=== PATIENT | male | born 1965 | race Two or more races ===

== ENCOUNTER 2018-10-24 12:51 | Inpatient (IN) | payer OTHER ==
[~2018-10-24] VITALS: Ht 162.6 cm; Wt 90.7 kg
[2018-11-01] MEDS ORDERED: OMEPRAZOLE20 MG PO (16:02)
[2018-11-01] MEDS ORDERED: INTEGRA F CAPS1 EACH PO (16:02)
[2018-11-01] MEDS ORDERED: INTESTINEX680 M1 PO (16:02)
[2018-11-01] MEDS ORDERED: PERCOCET 5-3251 EACH PO (16:02)
== END 2018-11-01 16:39 | disposition home or self-care (01) | DRG 331 ==
LOC: O/R 10-29 05:49 → SURG 10-29 05:49 → SURH 10-29 07:00 → SURG 10-29 14:04
PROVIDERS: ADMIT Surgery
PROC: 07TC4ZZ Resection of Pelvis Lymphatic, Percutaneous Endoscopic Approach (ICD-10-PCS; 2018-10-29)
PROC: 0DTK4ZZ Resection of Ascending Colon, Percutaneous Endoscopic Approach (ICD-10-PCS; principal; 2018-10-29 07:00)
DX: D12.2 Benign neoplasm of ascending colon (principal); R59.0 Localized enlarged lymph nodes

== ENCOUNTER 2018-10-28 07:08 | Day surgery (SDC) | payer OTHER | END 2018-10-28 11:40 | disposition home or self-care (01) | LOC: AMB-ENDOS 07:08 | DX: K57.30 Diverticulosis of large intestine without perforation or abscess without bleeding (principal) ==

== ENCOUNTER 2019-11-17 06:20 | Day surgery (SDC) | payer OTHER ==
[~2019-11-17 06:20] MED LIST: INTEGRA F CAPS1 EACH PO; INTESTINEX680 M1 PO; OMEPRAZOLE20 MG PO; PERCOCET 5-3251 EACH PO
== END 2019-11-17 13:40 | disposition home or self-care (01) ==
LOC: AMB-ENDOS 06:20
DX: K62.89 Other specified diseases of anus and rectum (principal); K57.30 Diverticulosis of large intestine without perforation or abscess without bleeding; K64.0 First degree hemorrhoids